=== PATIENT | male | born 1945 | race Caucasian/White ===

== ENCOUNTER → 2017-05-17 | Outpatient (CLI) | payer BC ==
[2017-05-12 16:01] LABS: BLOOD UREA NITROGEN 27 mg/dl (7-18); CREATININE 0.89 mg/dl (0.60-1.40)
[~2017-05-17] MED LIST: CLB200 PO; GADAVIST IV PRN; MINO0.1C2 PO; OMEGA PO; PRLSR20 PO; VGRUNK PO; VITAMIN D PO
--- NOTE | 2017-05-17 19:46 | DIAGNOSTIC IMAGING REPORT ---
BRAIN COMBO FOR IAC CLINICAL HISTORY: Dizziness. Left greater than right asymmetric sensorineural hearing loss. COMPARISON STUDY: No previous studies for comparison. TECHNIQUE: Utilizing a 1.5 Juliane magnet and dedicated coil, multiplanar, multi echo imaging of the brain was performed pre and postcontrast administration with thin cut imaging through the internal auditory canals. Injection of 10 cc of Gadavist IV was uneventful. FINDINGS: There are no areas of restricted diffusion. No acute intracranial hemorrhage, midline shift or mass effect is present. Ventricular system is normal. Basilar cisterns are patent. There are no extra-axial collections. No intracranial mass or pathologic enhancement is identified. No mass or abnormal enhancement is identified within the internal auditory canals. A vessel extends into the right internal auditory canal and likely reflects the right anterior inferior cerebellar artery and slightly displaces the nerves. This finding is of questionable clinical significance. A few small foci of white matter T2 hyperintensity suggest small vessel disease. Orbits are unremarkable. There is no fluid within the mastoid air cells. IMPRESSION: 1. No acute intracranial findings. 2. No intracranial mass or pathologic enhancement. 3. No definite abnormality within the internal auditory canals. A vessel extends into the right internal artery canal and slightly deforms the nerves. This vessel likely represents the anterior inferior cerebellar artery. This finding is often seen in normal patients and is of questionable clinical significance. Electronically signed by: Chiki Roque M.D. 05/17/2017 7:44 PM Dictated Date/Time: 05/17/2017 7:15 PM
== END | disposition home or self-care (01) ==
LOC: C.MRI 17:19
PROVIDERS: ATTEND Physician Assistant
DX: H90.42 Sensorineural hearing loss, unilateral, left ear, with unrestricted hearing on the contralateral side (principal); R42 Dizziness and giddiness

== ENCOUNTER → 2018-02-18 | Outpatient (CLI) | payer BC ==
[~2018-02-18] MED LIST changes: -GADAVIST IV PRN
[2018-02-18 10:33] LABS: BASO % 0.8 %; BASO ABS # 0.04 K/uL (0-0.2); EOS % 3.1 %; EOS ABS # 0.15 K/uL (0-0.5); HEMATOCRIT 42.8 % (42-52); HEMOGLOBIN 14.5 g/dL (14.0-18.0); IG# 0.01 K/uL (0.00-0.02); LYMPH % 21.3 %; LYMPH ABS # 1.02 K/uL (1.2-3.4); MEAN CELL VOLUME 91.3 fL (80-100); MEAN CORPUSCULAR HEMOGLOBIN 30.9 pg (25-34); MEAN CORPUSCULAR HGB CONC 33.9 g/dl (32-36); MONO % 12.3 %; MONO ABS # 0.59 K/uL (0.11-0.59); NEUT % 62.3 %; NEUT ABS # 2.97 K/uL (1.4-6.5); PLATELET COUNT 136 K/uL (130-400); RED CELL DISTRIBUTION WIDTH SD 43.4 fL (36.4-46.3); WHITE BLOOD COUNT 4.78 K/uL (4.8-10.8)
[2018-02-18 10:42] LABS: BLOOD UREA NITROGEN 28 mg/dl (7-18); CALCIUM 9.1 mg/dl (8.5-10.1); CARBON DIOXIDE 29 mmol/L (21-32); CREATININE 0.95 mg/dl (0.60-1.40); GLUCOSE 90 mg/dl (70-99); POTASSIUM 4.6 mmol/L (3.5-5.1); SODIUM 137 mmol/L (136-145)
== END | disposition home or self-care (01) ==
LOC: C.LAB1850 09:41
PROVIDERS: ATTEND Internal Medicine Cardiovascular Disease
DX: Z01.810 Encounter for preprocedural cardiovascular examination (principal); R00.1 Bradycardia, unspecified

== ENCOUNTER 2018-02-21 08:31 | Observation (INO) | payer BC ==
[2018-02-21] VITALS (9 sets, daily range): BP systolic 108–122; BP diastolic 63–77; PULSE 41–62; TEMP 36.4–36.5; O2SAT 93–99
[~2018-02-21] VITALS: Ht 190.5 cm; Wt 93.3 kg
[~2018-02-21 08:31] MED LIST changes: +CEFAZOLIN 1000MG IV PUSH 7.5 ML IV SCH; +LACTATED RINGER'S 1000ML 1,000 ML IV SCH
--- NOTE | 2018-02-21 12:31 | History & Physical Bridge Note ---
H&P Re-Evaluation Bridge Note: I have examined the patient, reviewed the History & Physical and in the interval since the performance of the History & Physical I have noted the following changes of clinical significance: No changes noted. I reviewed the indications, procedure, risks and alternatives of pacemaker implantation with the patient and his , they understand and he agrees to proceed. Consent obtained. I also reviewed conscious sedation with him including the risks and he agrees. Consent obtained.
--- NOTE | 2018-02-21 12:32 | Pre Sedation Assessment ---
Pre Sedation Assessment General Date of Sedation: Feb 21, 2018. Vital Signs Past 12 Hours Date Time Temp Pulse Resp B/P (MAP) Pulse Ox O2 Delivery O2 Flow Rate FiO2 02/21/18 09:00 36.4 41 18 114/66 (82) 99 Room Air Review Cardiovascular: regular rate, rhythm, + bradycardia Lungs: lungs clear Pre-Sedation Airway Assessment Smoking Status: Never Smoker Hx of Sleep Apnea: No Hx of difficult intubation: No Short Thick Neck: No Thyro-mental Distance: > 3 Finger Breadths Mallampati Classification: Class II ASA Classification: Class II NPO Status Date of Last Intake of Fluids: Feb 21, 2018 Time of Last Intake of Fluids: 0700 Date of Last Intake of Solids: Feb 20, 2018 Procedure Planning Contraindications for Sedation: None Current Medications Reviewed: Yes Notes The planned sedation has been discussed with the patient. Informed Consent was obtained. I have identified the patient, determined the appropriateness of sedation and have assessed the patient immediately prior to the procedure. All medicine(s) and interventions are by my order.
[2018-02-21] MEDS ORDERED: BACITRACIN 50000 UNIT VIAL ONE (12:42)
[2018-02-21] MEDS ORDERED: LIDOCAINE HCL 1% 20 ML VIAL ONE (12:42)
[2018-02-21] MEDS ORDERED: BACITRACIN OINT 0.9 GM PKT ONE (12:42)
[2018-02-21] MEDS ORDERED: KEFZOL SPECIAL PROCEDURE STOCK 1 GM ADDVIAL ONE (12:45)
[2018-02-21] MEDS ORDERED: FENTANYL CITRATE INJ 50 MCG/1 ML 2 ML VIAL ONE ×2 (12:46→13:29)
[2018-02-21] MEDS ORDERED: MIDAZOLAM HCL 5 MG/ML 1 ML VIAL ONE (12:47)
--- NOTE | 2018-02-21 14:11 | [facility] Operative Report ---
Operative Report Operative Date Feb 21, 2018. Pre-Operative Diagnosis Sinus node dysfunction Post-Operative Diagnosis Same Procedure(s) Performed Dual-chamber pacemaker implantation Surgeon Dr. Pardo Senior Sql Dba Surgeon(s) None Estimated Blood Loss 20 cc Findings Good lead position, good measurements Specimens None Anesthesia Local with sedation Complication(s) None Disposition PCU Description of Procedure After obtaining informed consent for the procedure, the patient was brought to the laboratory and prepped and draped in the standard sterile manner. The left prepectoral region was anesthetized with 1% lidocaine local anesthetic and left axillary venipuncture was performed by percutaneous technique and a guidewire placed through the left subclavian vein into the superior vena cava. The area was further infiltrated with 1% lidocaine local anesthetic and a 5 cm incision was made parallel to the left clavicle and 2 cm below it and carried down to the anterior pectoralis fascia. A pacemaker pocket was formed by blunt dissection anterior to the pectoralis fascia and a bacitracin-soaked sponge (50, 000 units in 50 cc normal saline solution) was placed in the pocket. An 8 Welsh Medtronic lead introducer was placed over the guidewire into the left subclavian vein, the dilator and guidewire were removed and a bipolar active fixation steroid tipped ventricular lead was advanced through the introducer into the superior vena cava. A guidewire was placed through the introducer and the introducer was stripped from the lead and guidewire. Another 8 Welsh Medtronic lead introducer was placed over the guidewire into the left subclavian vein, the dilator and guidewire were removed and a bipolar active fixation steroid tipped atrial lead was advanced through the introducer into the superior vena cava. A guidewire was placed back through the introducer and the introducer was stripped from the lead and guidewire. Using a curved stylette the ventricular lead was advanced through the right ventricular outflow tract into the pulmonary artery and then using a straight stylette was positioned in the right ventricular apex. The screw was extended fixing the lead in position. Pacing and sensing thresholds were evaluated in bipolar configuration and are recorded on the implant data sheet. Using a curved stylette the atrial lead was positioned in the region of the atrial appendage and the screw extended fixing the lead in position. Pacing and sensing thresholds were evaluated in bipolar configuration and are recorded on the implant data sheet. Once the leads were in position they were attached to the anterior pectoralis fascia using 2 sutures of 2-0 silk around each lead collar. The bacitracin- soaked sponge was removed from the pocket, hemostasis was obtained, the pacemaker was attached to the leads and placed in the pocket with the leads coiled beneath it. The incision was closed with a running double subcutaneous closure of 3-0 Vicryl absorbable suture, followed by running subcuticular skin closure of 4-0 Vicryl absorbable suture. Bacitracin ointment was placed on the incision and a pressure dressing applied. I attest to the content of the Intraoperative Record and any orders documented therein. Any exceptions are noted below.
[2018-02-21] MEDS ORDERED: KETOROLAC TROMETHAMINE 10 MG TAB PO PRN (14:15)
--- NOTE | 2018-02-21 14:15 | Post Sedation Assessment ---
Post Sedation Assessment General Date of Sedation Feb 21, 2018. Vital Signs: Vital Signs Past 12 Hours Date Time Temp Pulse Resp B/P (MAP) Pulse Ox O2 Delivery O2 Flow Rate FiO2 02/21/18 14:00 62 18 107/72 (84) 99 Room Air 02/21/18 09:00 36.4 41 18 114/66 (82) 99 Room Air Post Procedure Recovery Score Activity: (2) Moves 4 extremities * Respiration: (2) Deep breath/cough Circulation: (2) +/-20% PreAnes Value Consciousness: (2) Fully Awake Oxygen Saturation: (2) > 92% On Room Air Post Anesthesia Score: 10 Discharge Sedation Level of Care: Fast Track Phase II Post Sedation Plan On clinical assessment, the patient appears to have tolerated the sedation without complications. Patient is recovering as anticipated. Patient will continue to be monitored by nursing and may be discharged when sedation discharge criteria are met per below protocol. Upon Completions of procedure and additional 15 minutes continue every 5 minute vital signs and the P.A.R. score; then discharge to a Phase I or Fast Track to Phase II per the following guidelines: * Discharge Patient to appropriate Phase II area if PAR is 8 or greater or return to pre- procedure baseline. The post - procedure orders will be as directed. * If PAR score is less than 8 or not return to pre-procedure baseline then patient will follow Phase I monitoring till PAR is reached for Phase II. The Phase I may be done in procedure room or may call to secure a Phase I area. * If naloxone or flumazenil are used for reversal, hold in Phase I for an additional 60 -120 minutes before discharge to Phase II. Please call the Sedation Physician to re-evaluate and complete post-note for discharge to Phase II area. Do NOT discharge from procedure sedation or Phase 1 until post- sedation evaluation note is complete by procedure /sedation MD Sedation Discharge Instructions to be given to the patient at discharge to home.
[2018-02-21] MEDS ORDERED: IV FLUIDS COMPLETED PRN (16:00)
[2018-02-21] MEDS: ACETAMINOPHEN 325 MG TAB PO PRN (19:59)
[2018-02-22] VITALS: BP 97/59; PULSE 64; TEMP 36.3; O2SAT 93; Ht 190.5 cm; Wt 93.3 kg
[2018-02-22] MEDS: ACETAMINOPHEN 325 MG TAB PO PRN (03:24)
[2018-02-22 03:35] VITALS: BP 97/59; PULSE 64; TEMP 36.3; O2SAT 96
--- NOTE | 2018-02-22 06:55 | DIAGNOSTIC IMAGING REPORT ---
CHEST 2 VIEWS ROUTINE CLINICAL HISTORY: 72 years-old Male presenting with EXACT TIME ORDERED Evaluate for pneumothorax and lead placement. TECHNIQUE: PA and lateral views of the chest were obtained. COMPARISON: 05/19/2011. FINDINGS: There has been interval left subclavian pacer placement with leads in the right atrium and right ventricular apex. Leads appropriately positioned. Lungs and pleural spaces clear. Degenerative changes of the thoracic spine. Upper abdomen normal. IMPRESSION: 1. Interval placement of a left subclavian 2-lead pacer. No pneumothorax. Electronically signed by: Geremias Avendano M.D. 02/22/2018 6:53 AM Dictated Date/Time: 02/22/2018 6:35 AM
[2018-02-22 07:38] VITALS: BP 97/56; PULSE 60; TEMP 36.4; O2SAT 93
[2018-02-22] MEDS ORDERED: PANTOprazole SOD 40 MG TAB PO SCH (09:00)
--- NOTE | 2018-02-22 09:59 | Discharge Instructions ---
Discharge Instructions Date of Service Feb 22, 2018. Admission Reason for Admission: Sinus Bradycardia Discharge Discharge Diagnosis / Problem: Post pacemaker implantation Discharge Goals Goal(s): Improve disease control Activity Recommendations Activity Limitations: per Instructions/Follow-up section . Instructions / Follow-Up Instructions / Follow-Up ACTIVITY RECOMMENDATIONS: * Do not raise affected arm over head for 2 weeks. SPECIAL CARE INSTRUCTIONS: * If bleeding occurs, apply direct pressure to area for 5 minutes. * Call your doctor if you have severe pain, fever, drainage or bleeding at site. * Keep dressing on and dry for 48 hours then remove. * Keep any scheduled doctor's appointment. * Implant Card - hand held device with website information given. SKIN IRRITATION: * You may experience some redness and/or swelling in the area where radiation was administered. If any skin irritation occurs, please contact your family physician. FOLLOW UP VISIT: Dr. Pardo Thrusday 02/24/2018 10:30 am Current Hospital Diet Patient's current hospital diet: AHA Diet (Heart Healthy) Discharge Diet Recommended Diet: AHA Diet (Heart Healthy) Procedures Procedures Performed: Pacemaker implantation February 21, 2018 Pending Studies Studies pending at discharge: no Medical Emergencies . Who to Call and When: Medical Emergencies: If at any time you feel your situation is an emergency, please call 911 immediately. . Non-Emergent Contact Non-Emergency issues call your: Primary Care Provider . . "Provider Documentation" section prepared by Stanley Pardo. .
--- NOTE | 2018-02-22 10:04 | Cardiology Follow-Up ---
Subjective Date of Service: Feb 22, 2018. Pt evaluation today including: conversation w/ patient, conversation w/ family , physical exam, lab review, review of studies, review of inpatient medication list Social History Smoking Status: Never Smoker History of Alcohol Use: Yes (occasional) Review of Systems Respiratory: No shortness of breath Cardiac: No chest pain No significant incisional discomfort Objective Vital Signs Past 12 Hours Date Time Temp Pulse Resp B/P (MAP) Pulse Ox O2 Delivery O2 Flow Rate FiO2 02/22/18 07:38 36.4 60 18 97/56 (70) 93 Room Air 02/22/18 07:29 Room Air 02/22/18 03:35 36.3 64 18 97/59 (72) 96 Room Air 02/22/18 00:00 CPAP 02/22/18 00:00 36.3 64 18 97/59 93 Room Air 02/21/18 23:15 36.5 62 18 113/68 (83) 95 Nasal Cannula 2.0 Last Recorded Weight-Kilograms: 93.300 Physical Exam Constitutional: Level of Distress: NAD Lungs: Auscultation: breath sounds normal Cardiovascular: Heart Auscultation: RRR, no murmurs Incision is clean and dry, minimal ecchymosis. Minimal swelling. No drainage or bleeding. Data Imaging: Chest x-ray shows good lead placement and no pneumothorax. EKG: Atrial pacing with intact AV conduction Telemetry reviewed: Normal pacemaker function, predominantly atrial pacing Pacemaker evaluation: Excellent pacing and sensing characteristics. Assessment and Plan Postop day #1: Doing very well post pacemaker implantation, no significant discomfort and the site looks good. The chest x-ray looks good and the pacer is functioning very well. Stable for discharge.
--- NOTE | 2018-02-22 10:09 | Discharge Summary ---
Discharge Summary Admission Date: Feb 21, 2018 at 14:15 Discharge Date: Feb 22, 2018 Discharge Disposition: Home Primary Diagnosis: Sinus node dysfunction Discharge Instructions Last Recorded Wt (Kilograms): 93.300 Activity Recommendations: resume regular activity Allergies: Coded Allergies: No Known Allergies (Verified Allergy, Mild, 07/20/08) Special Care: Call your doctor if: * Temperature above 101 degrees * Pain not relieved by pain medicine ordered * There is increased drainage or redness from any incision * You have any unanswered questions or concerns. Avoid all tobacco products. If you need help to stop smoking, call [employer]s FREE QUITLINE at . This is a free call. Admission HPI Symptomatic sinus bradycardia, progressive. Admission Physical Exam Constitutional: Level of Distress: NAD Lungs: Auscultation: breath sounds normal Cardiovascular: Heart Auscultation: RRR, no murmurs Hospital Course He was admitted and had a pacemaker implanted on February 21, 2018. Postop day #1: Doing very well post pacemaker implantation, no significant discomfort and the site looks good. The chest x-ray looks good and the pacer is functioning very well. Stable for discharge. Total time spent on discharge = This includes examination of the patient, discharge planning, medication reconciliation, and communication with other providers.
[2018-02-22 10:20] VITALS: BP 97/56; PULSE 60; TEMP 36.4; O2SAT 93
== END 2018-02-22 10:35 | disposition home or self-care (01) ==
LOC: C.ACU 08:31 → ENRESERV 12:56 → C.2E 14:15
PROVIDERS: ADMIT Internal Medicine Cardiovascular Disease; ATTEND Internal Medicine Cardiovascular Disease
DX: I49.5 Sick sinus syndrome (principal); R00.1 Bradycardia, unspecified; R42 Dizziness and giddiness; R55 Syncope and collapse; K21.9 Gastro-esophageal reflux disease without esophagitis; Z87.891 Personal history of nicotine dependence

== ENCOUNTER 2024-06-23 12:23 | Inpatient (IN) ==
--- NOTE | 2024-06-22 11:35 | Anesthesiology Consultation ---
Date of Service June 22, 2024 Assessment & Plan (1) Encounter for pre-operative examination: Plan - EKG unconfirmed, patient acceptable to proceed pending anesthesiologist review of EKG DOS. - express care 06/02/24 [facility]: "...Due to tick being attached for unknown amount of time, will use prophylaxis..." - cardiology office visit 06/21/23 [facility]: "...Dual-chamber pacemaker...Electrical characteristics are stable and battery life is acceptable...several episodes of what appears to be supraventricular tachycardia, this has been present before...heart rate is somewhat blunted and I have increased his rate response since that it...Occipital infarct...cause of this is unknown it is not due to atrial fibrillation (his pacemaker has very good atrial fibrillation monitoring) and is likely vascular...progressive dyspnea on exertion as well as occasional left-sided chest discomfort, it may be age-related but it is little bit worrisome and it is relatively new therefore I am going to schedule him for a stress test...may be limited on heart rate there as well and we can consider increasing his pacing rate...follow up 1 year..." - 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 Chart Review Chart Review: Acceptable Risk for Surgery and Patient NOT seen in Pre Admission Testing History Surgery Operation Date: 06/23/24 15:20 Proposed Procedures p Revision One Component of Right Total Knee Arthroplasty - Marc Pro DO Height/Weight Height: 6 ft 2 in Weight: 99 kg Allergies Allergy/AdvReac Type Severity Reaction Status Date / Time No Known Drug Allergies Allergy Verified 06/22/24 11:09 Medications Home Medications Medication Instructions Recorded Confirmed Last Taken celecoxib 200 mg capsule (Celebrex) 200 mg PO QAM 06/09/19 06/22/24 03/09/24 cholecalciferol (vitamin D3) 10 400 units PO QAM 05/23/20 06/22/24 03/09/24 mcg (400 unit) capsule multivitamin 1 tab PO QAM 05/23/20 06/22/24 03/09/24 biotin 1 mg tablet 1 mg PO QAM 03/02/24 06/22/24 03/09/24 folic acid 1 mg tablet 1 mg PO QAM 03/02/24 06/22/24 03/09/24 pantoprazole 40 mg tablet,delayed 40 mg PO QAM #90 tabs 03/27/24 06/22/24 Unknown release (Protonix) Past Medical History Medical History (Updated 06/22/24 @ 11:43 by Chanel Sorenson PA-C) [place] esophagus BPH (benign prostatic hyperplasia) Bradycardia reason for pacemaker per pt > controlled Cerebral infarct incindental finding on prior imaging; unk event to pt Chest discomfort pt denies any issues at this time Chronic hoarseness ZEE (dyspnea on exertion) pt denies Dyslipidemia pt denies - no current medications at this time. GERD (gastroesophageal reflux disease) History of COVID-2021 History of kidney stones passed on own Hx of supraventricular tachycardia none since 2018 NGUYEN (obstructive sleep apnea) cpap Painful total knee replacement, right "The post in the center is apparently broken off. He is going to replace it. It just flops around." as per patient Past Family History Family History Father , age 88 of uncertain causes Diabetes Mother , age 90 with stomach/liver cancer Cancer COLON Other No family history of adverse response to anesthesia Past Surgical History Surgical History (Updated 06/22/24 @ 11:43 by Chanel Sorenson PA-C) History of colonoscopy History of esophagogastroduodenoscopy (EGD) History of repair of rotator cuff Rt History of right cataract surgery History of total knee replacement Bilateral Hx of left cataract extraction Pacemaker medtronic; (follows with Dr. Miranda) last checked in Jun 2023 - [facility] for recheck but cx'd d/t needing knee surgery 06/23/24 [facility] S/P cholecystectomy S/P hernia repair Social History Smoking Status: Former smoker Do You Dip or Chew Tobacco: No Hx Alcohol Use: Yes Alcohol type: beer and wine alcohol intake frequency: a few times a week Hx Substance Use: No substance use type: does not use Lab Results Anesthesia Preop Results Results Anesthesia Widget: WBC 5.92 K/ul (4.8-10.8) 06/22/24 Hgb 14.7 g/dl (14.0-18.0) 06/22/24 Hct 45.2 % (42.0-52.0) 06/22/24 Plt 141 K/uL (130-400) 06/22/24 Na 140 mmol/L (136-145) 06/22/24 K 4.8 mmol/L (3.5-5.1) 06/22/24 Cl 107 mmol/L (98-107) 06/22/24 CO2 29 mmol/L (21-32) 06/22/24 BUN 15 mg/dl (6-23) 06/22/24 Creat 0.92 mg/dl (0.6-1.4) 06/22/24 Glucose Level 88 mg/dl (70-99(Fasting)) 06/22/24 PT 10.2 Seconds (9.0-12.0) 06/22/24 INR 0.9 (0.9-1.1) 06/22/24 Testing Chest X-Ray Date: 12/14/23 No acute process. 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 No acute intracranial findings. 2. No intracranial mass or pathologic enhancement. 3. Mild atrophy and minimal small vessel disease. 4. 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 Head and neck CTA 12/11/20 1. No significant stenosis, occlusion, or aneurysm within the [place]. 2. Mild focal narrowing within the proximal left internal carotid artery. The right internal carotid artery is widely patent. 3. No acute intracranial abnormality. 4. Small focus of encephalomalacia within the left occipital lobe consistent with an old infarct.
--- NOTE | 2024-06-23 11:51 | History & Physical Bridge Note ---
Date of Service June 23, 2024 History & Physical Bridge Note I have examined the patient, reviewed the History & Physical and in the interval since the performance of the History & Physical I have noted the following changes of clinical significance: no changes noted
[~2024-06-23 12:23] MED LIST changes: +BUPIVACAINE 0.5 % 5 MG/1 ML PF 10ML VIAL ONE; -CEFAZOLIN 1000MG IV PUSH 7.5 ML IV SCH; -CLB200 PO; -LACTATED RINGER'S 1000ML 1,000 ML IV SCH; -MINO0.1C2 PO; -OMEGA PO; -PRLSR20 PO; +ROPIVACAINE 0.5% 5 MG/ML 30 ML VIAL ONE; -VGRUNK PO; -VITAMIN D PO
[2024-06-23] MEDS ORDERED: MIDAZOLAM HCL 1 MG/ML 2ML VIAL ONE (12:41)
[2024-06-23] MEDS ORDERED: fentaNYL citrate PF 100 MCG/2 ML VIAL ONE (12:41)
[2024-06-23] MEDS ORDERED: PROPOFOL IV EMULSION 10 MG/ML 20 ML VIAL IV ONE ×3 (12:41→14:35)
[2024-06-23] MEDS ORDERED: PHENYLEPHRINE HCL 10 MG/ML VIAL ONE (12:41)
[2024-06-23] MEDS ORDERED: ATROPINE SULFATE 0.1 MG/ML 10ML SYR IV PRN (12:43)
[2024-06-23] MEDS ORDERED: ONDANSETRON INJ 2 MG/ML 2 ML VIAL IV PRN ×2 (12:43→14:23)
[2024-06-23] MEDS ORDERED: fentaNYL citrate PF 100 MCG/2 ML VIAL IV PRN (12:43)
[2024-06-23] MEDS ORDERED: ePHEDrine sulfate 50 MG/ML AMP IV PRN (12:43)
[2024-06-23] MEDS ORDERED: HYDROmorphone INJ 1 MG/ML SYRINGE IV PRN (12:43)
--- NOTE | 2024-06-23 12:47 | Anesthesiology Consultation ---
Date of Service June 23, 2024 Assessment & Plan Chart Review Chart Review: Acceptable Risk for Surgery Consults Requested none ASA ASA2 Proposed Anesthesia Anesthesia Type: MAC Spinal Regional Site: Adductor Canal (Right) History Surgery Operation Date: 06/23/24 15:20 Proposed Procedures p Revision One Component of Right Total Knee Arthroplasty - Marc Pro DO Height/Weight Height: 6 ft 2 in Weight: 103.1 kg Allergies Allergy/AdvReac Type Severity Reaction Status Date / Time No Known Drug Allergies Allergy Verified 06/22/24 11:09 Medications Home Medications Medication Instructions Recorded Confirmed Last Taken celecoxib 200 mg capsule (Celebrex) 200 mg PO QAM 06/09/19 06/22/24 03/09/24 cholecalciferol (vitamin D3) 10 400 units PO QAM 05/23/20 06/22/24 03/09/24 mcg (400 unit) capsule multivitamin 1 tab PO QAM 05/23/20 06/22/24 03/09/24 biotin 1 mg tablet 1 mg PO QAM 03/02/24 06/22/24 03/09/24 folic acid 1 mg tablet 1 mg PO QAM 03/02/24 06/22/24 03/09/24 pantoprazole 40 mg tablet,delayed 40 mg PO QAM #90 tabs 03/27/24 06/22/24 Unknown release (Protonix) Active Medications Generic Name Dose Route Start Last Admin Trade Name Anthonyq PRN Reason Stop Dose Admin Acetaminophen 1,000 mg 06/23/24 06:00 06/23/24 12:49 Acetaminophen 500 Mg Tab PO 06/23/24 18:00 1,000 mg PREOP OTILIO Administration Dexamethasone Sodium Phosphate 10 mg 06/23/24 06:00 06/23/24 12:48 DexamethasonePf 10 Mg/Ml Vial IV 06/23/24 18:00 10 mg PREOP OTILIO Administration Famotidine 20 mg 06/23/24 06:00 06/23/24 12:49 Famotidine 20 Mg Tab PO 06/23/24 18:00 20 mg PREOP OTILIO Administration Gabapentin 300 mg 06/23/24 06:00 06/23/24 12:49 Gabapentin 300 Mg Cap PO 06/23/24 18:00 300 mg PREOP OTILIO Administration Lactated Ringer's 1,000 mls @ 15 mls/hr 06/23/24 06:00 06/23/24 12:50 Lr IV 06/23/24 18:00 15 mls/hr .Q24H OTILIO Administration Lactated Ringer's 1,000 mls @ 60 mls/hr 06/23/24 06:00 06/23/24 12:50 Lr IV 06/23/24 22:39 Not Given .[id number] OTILIO NPO Last Intake of Solids Comment: NPO Greater then 8 hrs Past Medical History Medical History (Updated 06/22/24 @ 11:43 by Chanel Sorenson PA-C) Painful total knee replacement, right "The post in the center is apparently broken off. He is going to replace it. 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 Bradycardia reason for pacemaker per pt > controlled GERD (gastroesophageal reflux disease) NGUYEN (obstructive sleep apnea) cpap Cerebral infarct incindental finding on prior imaging; unk event to pt BPH (benign prostatic hyperplasia) Exercise / Class Metabolic Activity II 4-5 Yardwork/Stairs/Walk up hill Past Family History Family History Father , age 88 of uncertain causes Diabetes Mother , age 90 with stomach/liver cancer Cancer COLON Other No family history of adverse response to anesthesia Past Surgical History Surgical History Hx of left cataract extraction History of right cataract surgery History of repair of rotator cuff Rt Pacemaker medtronic; (follows with Dr. Miranda) last checked in Jun 2023 - was scheduled to see [facility] 06/26/24 for recheck but cx'd d/t needing knee surgery 06/23/24 [facility] History of total knee replacement Bilateral History of esophagogastroduodenoscopy (EGD) History of colonoscopy S/P hernia repair S/P cholecystectomy Past Anesthesia History No Hx of Anesthesia Complications History of PONV No Hx of PONV Social History Smoking Status: Former smoker Do You Dip or Chew Tobacco: No Hx Alcohol Use: Yes Alcohol type: beer and wine alcohol intake frequency: a few times a week Hx Substance Use: No substance use type: does not use Review of Systems ROS Unobtainable: All systems reviewed & are unremarkable except as noted in Subjective Physical Exam ENMT Mouth: no dentition abnormality Thyromental Distance: > or= 3.5 Finger Breadths Mallampati Class: II Neck normal visual inspection Respiratory normal respiratory effort Auscultation: lungs clear to auscultation bilaterally Cardiovascular Rate/Rhythm: regular rate Testing Chest X-Ray Date: 12/14/23 No acute process. Echocardiogram Date: 12/23/20 EF 55-60% No LV regional wall motion abnormalities No LVH No significant valvular abnormalities Type 1 diastolic dysfunction Stress Test Date: 12/21/23 METS 9 MPHR 87% Normal stress echo Normal LV systolic function without wall motion abnormalities Other Testing Pacemaker report 03/01/24 Medtronic AP 87% CRADLE PLACER < 0.1% 1 supraventricular event Mode: AAIR DDDR Brain MRI 02/09/24 1. No acute intracranial findings. 2. No intracranial mass or pathologic enhancement. 3. Mild atrophy and minimal small vessel disease. 4. 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 Head and neck CTA 12/11/20 1. No significant stenosis, occlusion, or aneurysm within the havasupai of [place]. 2. Mild focal narrowing within the proximal left internal carotid artery. The right internal carotid artery is widely patent. 3. No acute intracranial abnormality. 4. Small focus of encephalomalacia within the left occipital lobe consistent with an old infarct.
[2024-06-23] MEDS: dexAMETHasone**PF** 10 MG/ML VIAL IV SCH (12:48)
[2024-06-23] MEDS: ACETAMINOPHEN 500 MG TAB PO SCH ×2 (12:49→21:00)
[2024-06-23] MEDS: FAMOTIDINE 20 MG TAB PO SCH (12:49)
[2024-06-23] MEDS: GABAPENTIN 300 MG CAP PO SCH (12:49)
[2024-06-23] MEDS: LR 60ML/HR IV SCH (12:50)
[2024-06-23] MEDS: LR 500ML BOLUS, THEN 15ML/HR IV SCH (12:50)
[2024-06-23] MEDS: TRANEXAMIC ACID 1,000 MG **IV Pre-op IV SCH (13:12)
[2024-06-23] MEDS: ceFAZolin 2000MG 2,000 MG/15 ML SYR IV SCH ×2 (13:34→21:01)
[2024-06-23] MEDS ORDERED: ONDANSETRON INJ 2 MG/ML 2 ML VIAL ONE (14:08)
[2024-06-23] MEDS: TRANEXAMIC ACID 1,000 MG **IV Intra-op IV SCH (14:11)
[2024-06-23] MEDS: ROPIV 0.5% 246mg, Ketorolac 30mg, EPINEPHrine 0.5mg in NSS INFIL SCH (14:14)
[2024-06-23] MEDS ORDERED: HYDROmorphone INJ 0.5 MG/0.5 ML SYR IV PRN (14:23)
[2024-06-23] MEDS ORDERED: traMADol HCL 50 MG TABLET PO PRN (14:23)
[2024-06-23] MEDS ORDERED: MAGNESIUM HYDROXIDE SUSP 30 ML UDC PO PRN (14:23)
[2024-06-23] MEDS ORDERED: bisacodyL 10 MG SUPP PR PRN (14:23)
[2024-06-23] MEDS ORDERED: METOCLOPRAMIDE HCL INJ 5 MG/ML 2 ML VIAL IV PRN (14:23)
[2024-06-23] MEDS ORDERED: NALOXONE HCL 0.4 MG/1 ML VIAL/CARP IV PRN (14:23)
--- NOTE | 2024-06-23 15:20 | XRay Report ---
XR knee RT 1 or 2V routine HISTORY: 78 years-old Male Surgical Post Op COMPARISON: 03/24/2023 TECHNIQUE: 2 views of the right knee FINDINGS: Total joint arthroplasty with patellar resurfacing. Anterior midline skin lynette with expected posto perative soft tissue swelling and deep tissue air. IMPRESSION: Satisfactory alignment of the total joint arthroplasty. ACT 112: Negative or not required by law. The above report was generated using voice recognition software. It may contain grammatical, syntax o r spelling errors. Electronically signed by: Manny Lunsford M.D. 06/23/2024 3:19 PM
--- NOTE | 2024-06-23 15:23 | Operative Report ---
PG Post Operative Report Pre & Post Diagnosis Operation Date: 06/23/24 15:20 Pre-Op Diagnosis: Right Painful Total Knee Replacement Post-Op Diagnosis: Right Painful Total Knee Replacement I identified the patient and participated in the time-out.: Yes Procedure Operation Date: 06/23/24 15:20 Actual Procedures p Poly Exchange Right Total Knee Arthroplasty(Right) - Marc Pro DO Surgeon Marc Pro DO Digital Program Manager none Estimated Blood Loss 10 Findings Consistent with Post-Op Diagnosis Specimens None Description of Procedure On June 23 2024 Feliz arrived at [facility] for the above procedure. He was seen in the preoperative holding area and the operative extremity was identified and signed. He was given a preoperative antibiotic and a spinal anesthetic. He was taken back the operating room and laid on table supine position. He was put under sedation. The right knee was prepped and draped sterile fashion. A timeout was done. The patient and the operative extremity was properly identified. A longitudinal incision was made directly over the old incision. Dissection was taken down through the fascia. A medial parapatellar arthrotomy was used. The soon as I open the knee up, the fracture post came out of the knee. This was set aside. The medial retinaculum was then released. A little bit of scar tissue was removed from the posterior aspect of the fat pad. The patella was then subluxated laterally and the knee was flexed. The polyethylene insert was removed. As stated earlier, the post had broken off the base of the polyethylene implant. The femoral and tibial components were tapped with a mallet and felt to be stable. The knee was then inspected and no additional pathology was identified. Several different polyethylene trials were used and a final size 11 [employer] J1 polyethylene implant was snapped into place. The knee was brought through full range of motion and felt to be stable. A 3- minute Betadine lavage was done. The surrounding soft tissues were then injected with an orthopedic pain control cocktail. The knee was then irrigated. The extensor mechanism was closed with #1 Vicryl. Skin was closed with 2-0 Vicryl and lynette. He was then placed in a soft dressing. He was then transferred to a hospital bed. He was taken to the postanesthesia care unit in stable condition. He tolerated the procedure well. I attest to the content of the Intraoperative Record and any orders documented therein. Any exceptions are noted below.
--- NOTE | 2024-06-23 16:27 | Anesthesiology Progress Note ---
Date of Service June 23, 2024 Anesthesia Post Procedure Vital Signs Vital Signs: Temp Pulse Pulse Resp BP Pulse Ox O2 Del Method 06/23/24 16:15 65 19 106/65 96 Nasal Cannula 06/23/24 16:05 65 16 108/61 97 Nasal Cannula 06/23/24 15:55 36.6 C 66 18 106/64 97 Nasal Cannula 06/23/24 15:45 61 19 97/55 L 97 Nasal Cannula 06/23/24 15:35 63 12 104/64 95 Room Air 06/23/24 15:25 63 15 105/65 93 Room Air 06/23/24 15:15 62 14 108/66 96 Room Air 06/23/24 15:05 60 12 101/64 99 Room Air 06/23/24 14:55 62 12 102/56 L 99 Oxymask 06/23/24 14:47 36.9 C 62 14 93/54 L 96 Oxymask 06/23/24 12:44 36.8 C 70 20 119/75 95 Room Air O2 Flow Rate 06/23/24 16:15 2 06/23/24 16:05 2 06/23/24 15:55 2 06/23/24 15:45 2 06/23/24 15:35 06/23/24 15:25 06/23/24 15:15 06/23/24 15:05 06/23/24 14:55 3 06/23/24 14:47 6 06/23/24 12:44 Pain Intensity Right Knee: Pain Intensity: 6 Transfer of Care Handoff Completed per policy Notes Mental Status: alert / awake / arousable and participated in evaluation Patient Amnestic to Procedure: Yes Nausea / Vomiting: adequately controlled Pain: adequately controlled Airway Patency, RR, SpO2: stable & adequate BP & HR: stable & adequate Hydration State: stable & adequate Anesthetic Complications: no major complications apparent
[2024-06-23 16:55] VITALS: RESP 18
[2024-06-23] MEDS: KETOROLAC TROMETHAMINE 15 MG/ML VIAL IV SCH (17:06)
[2024-06-23] MEDS: DOCUSATE SODIUM 100 MG CAP PO SCH (21:00)
[2024-06-23] MEDS: ASPIRIN 81 MG ECTAB PO SCH (21:00)
[2024-06-23] MEDS: SENNA 8.6 MG TAB PO SCH (21:01)
[2024-06-24 07:13] VITALS: BP 130/81; PULSE 75; TEMP 97.9; O2SAT 98
[2024-06-24] MEDS: dexAMETHasone 4 MG TAB PO SCH (08:25)
[2024-06-24] MEDS: MULTIVITAMIN TAB PO SCH (08:25)
--- NOTE | 2024-06-24 08:32 | Orthopedic Progress Note ---
Date of Service June 24, 2024 Assessment & Plan (1) Status post revision of total replacement of right knee: Overall he is doing very well. He is not having much pain in the right knee. He will be seen by physical therapy today for ambulation and range of motion exercises. He is on aspirin for DVT prophylaxis. He can be discharged to home later today. He will follow-up orthopedics in 2 weeks. Karishma Piper was seen and examined at bedside this morning. Overall he is doing very well. He is not having much pain in the right knee. He has been up and ambulating to the bathroom. He has no complaints.. Review of Systems All systems reviewed & are unremarkable except as noted in HPI & below. Physical Exam On physical exam of the right knee, the dressing is clean and dry. His leg is out full extension. He has active dorsiflexion plantarflexion of his right ankle.. Results & Data Results & Data Laboratory Results . Diagnostic Findings . PG Care Time/CCT Total # of Minutes Spent Total Time Spent with Patient: Total time spent is greater than 50% in coordination of care (as documented) at patient's floor/unit and/or counseling patient: Coding Level of Care Code 51725 Post Operative Follow-Up Diagnoses Status post revision of total replacement of right knee Z96.651
--- NOTE | 2024-06-24 08:33 | Discharge Summary ---
Date of Service June 24, 2024 Principal Diagnosis Same as "Discharge Diagnosis" noted below under Discharge Instructions. Discharge Exam On physical exam of the right knee, the dressing is clean and dry. His leg is out full extension. He has active dorsiflexion plantarflexion of his right ankle.. Discharge Data Procedures Performed Operation Date: 06/23/24 15:20 Actual Procedures p Poly Exchange Right Total Knee Arthroplasty(Right) - Marc Pro DO Ordered Studies 06/23/24 14:10 US - OR guided needle placemen Routine Hospital Course (1) Status post revision of total replacement of right knee: On June 23, [address] [facility] and underwent a revision right knee replacement without complication. He had a spinal anesthetic. Postoperatively he was started on aspirin for DVT prophylaxis and transferred to the general orthopedic floors. His hospital course was uneventful. On postop day #1, his vital signs were stable and his pain was well-controlled. He was able to participate well with physical therapy doing ambulation and range of motion exercises. He was then discharged to home. He will follow-up orthopedics in 2 weeks. PG Care Time/CCT Total # of Minutes Spent Total Time Spent with Patient: Total time spent is greater than 50% in coordination of care (as documented) at patient's floor/unit and/or counseling patient: Discharge Plan Discharge Items Patient Disposition: Home - Self-Care Reason For Visit: POST SURGICAL CARE Discharge Diagnosis: Revision right knee replacement Activity: Per Instructions section Non-emergency contact: Surgeon Call non-emergency contact if: your wound has increased redness and your wound has increased drainage Follow-up/Referrals: Marc Murillo [Primary Care Provider] - Diet: Regular Addtl Attending Provider Instructions: Activity and Therapy Recommendations: * If you are using [facility] then therapy will be provided at your home until they feel you have accomplished all of your goals. * If you are using [facility] then Physical Therapy will be provided until they feel you are ready to start Outpatient Physical Therapy. * If you are not using home therapy then Outpatient Physical Therapy should start about 3-5 days from your day of surgery. Therapy will last about 6-10 weeks * It is important not to put a pillow under your knee when you are relaxing or sleeping. It is just as important to make sure you are getting your knee perfectly straight as it is to regain your knee bend. * You were shown a series of exercises in the hospital. Do these exercises three times each day including the exercises you were shown in physical therapy. * Get up and walk several times each day. For the first four weeks, try not to stand or walk for more than one hour at a time. If you do stand or walk for more than one hour, you will not hurt anything, but your leg will likely swell. * As you feel comfortable, you may change from the walker or crutches to a cane and then to independent walking. Medications: * Narcotic You will likely be sent home from the hospital with a prescription for the narcotic pain medication that worked best throughout your stay. * Cefadroxil -take the antibiotic twice a day for 10 days to help prevent in fection. * Aspirin Most patients will be required to take Aspirin 81mg twice a day for 6 weeks after surgery. This is obtained [id number] and a prescription is not necessary. * Other medications may be prescribed for specific circumstances. If you have any questions, please call the office at . * Resume previous home medications unless otherwise instructed TEDs/Elastic Stockings: The white elastic stockings help limit swelling and prevent blood clots from forming in your legs.~ The more you wear them, the more they work. Wear them for six weeks. Dressing Care: The dressing can be changed after physical therapy on postop day #1. Daily dry dressing changes for a few days, especially if the incision is still draining some. If the incision is not draining then you may leave the lynette open to air. If there is a little bit of drainage or if the lynette are getting stuck on your clothing then cover the incision with a dry dressing. The lynette will be removed at your 2 week follow-up appointment. Showering: You may shower 5 days from the day of surgery as long as the incision is no longer draining. You may shower with the lynette exposed. Let soapy water run over the lynette and pat them dry. Do not scrub or soak the incision. Diet: You may resume your previous diet. Things To Watch For: * Drainage from the incision site that occurs more than one week after your s urgery. * Increased redness at the incision site. * Fever above 102 degrees Fahrenheit. * Unusual chest pain or shortness of breath. * Call [facility] at with any of the above problems Follow-Up Visit: Follow-up with Dr. Pro's office 2-3 weeks after your day of surgery. We will remove your lynette and answer any questions. If you have any additional questions or concerns, Dr Pro is usually in the office at the same time and will be available An appointment was probably scheduled when you signed-up for surgery in the office. If you have any questions call Office Instructions: More detailed instructions as well as Frequently Asked Questions were provided in a folder by our office when you signed-up for surgery. Please review these instructions when you get home. If you have any further questions or concerns, please feel free to call the office at [phone] Pending Studies at Discharge: No Stand-Alone Forms: My [facility] Medications and DC Order Prescriptions: New oxycodone 5 mg tablet 5 mg PO Q6H PRN (Reason: pain) Qty: 30 0RF cefadroxil 500 mg capsule 500 mg PO BID 10 Days Qty: 20 0RF aspirin [Adult Aspirin Regimen] 81 mg tablet,delayed release (DR/EC) 81 mg PO BID Qty: 84 0RF Continued celecoxib [Celebrex] 200 mg capsule 200 mg PO QAM pantoprazole [Protonix] 40 mg tablet,delayed release (DR/EC) 40 mg PO QAM Qty: 90 1RF multivitamin Tablet 1 tab PO QAM cholecalciferol (vitamin D3) 400 unit capsule 400 units PO QAM Rx Instructions: uncertain dose folic acid 1 mg Tablet 1 mg PO QAM biotin 1 mg Tablet 1 mg PO QAM Discharge Orders: Discharge Order (Routine); Ordered 06/24/24 Ordered By: Marc Pro Admission Data Admit Date/Time: 06/23/24 14:23 Attending Provider: Marc Pro Admit Provider: Marc Pro Primary Care Provider: Marc Murillo
[2024-06-24] MEDS: oxyCODONE HCL IR 5 MG TAB (IMMEDIATE RELEASE) PO PRN (11:40)
== END 2024-06-24 12:03 | disposition home or self-care (01) | DRG 489 ==
LOC: ASU 12:23 → 3W 14:23 → UNDODISIN 06-24 09:17